=== PATIENT | female | born 1955 | race Caucasian/White ===

== ENCOUNTER → 2022-05-16 | Outpatient (CLI) | payer OTHER, SELFPAY ==
[2022-05-16] VITALS (7 sets, daily range): BP systolic 89–127; BP diastolic 55–73; PULSE 82–113; RESP 16–18; TEMP 35.5–36; O2SAT 97–100; BMI 23.8
[2022-05-16] MEDS: 0.9% NaCl Peripheral Flush Adult/Peds IV (09:50)
[2022-05-16] MEDS: Furosemide 20 MG/2 ML VIAL IV (11:48)
== END | disposition home or self-care (01) ==
PROVIDERS: PCP Nurse Practitioner Adult Health; Referring Provider Internal Medicine Hematology & Oncology; Visit Provider Internal Medicine Hematology & Oncology
DX: C34.12 Malignant neoplasm of upper lobe, left bronchus or lung (principal)
CPT/HCPCS: 36430; 86850; 86900; 86901; 86920; 86922; J7040; P9016; A4216; J1940